=== PATIENT | male | born 1995 | race Caucasian/White ===

== ENCOUNTER 2024-07-15 04:46 | Emergency (ER) | payer OTHER ==
[2024-07-15 06:08] LABS: BLOOD UREA NITROGEN,BUN 12 mg/dL (7-18); CALCIUM 9.7 mg/dL (8.5-10.1); CARBON DIOXIDE,CO2 28 mmol/L (21-32); CHLORIDE,CL 103 mmol/L (100-108); ESTIMATED GFR 105 mL/min (>60); GLUCOSE RANDOM 92 mg/dL (74-106); POTASSIUM,K 3.5 mmol/L (3.6-5.2); SODIUM,NA 141 mmol/L (140-148)
[2024-07-15 06:11] LABS: ANION GAP 13.5 mmol/L (5.0-14.0)
[2024-07-15 06:17] LABS: BASOPHILS ABSOLUTE AUTO 0.07 K/uL (0.00-0.10); BASOPHILS PERCENT AUTO 0.8 % (0.1-1.3); EOSINOPHILS ABSOLUTE AUTO 0.08 K/uL (0.00-0.40); HEMATOCRIT 41.6 % (38.4-49.7); HEMOGLOBIN 15.9 g/dL (12.9-16.9); IMMATURE GRAN ABSOLUTE AUTO 0.07 K/uL (0.00-0.23); IMMATURE GRAN PERCENT AUTO 0.8 % (0.0-0.7); LYMPHOCYTES ABSOLUTE AUTO 1.68 K/uL (0.8-3.3); LYMPHOCYTES PERCENT AUTO 20.3 % (11.4-47.7); MEAN CORPUSCULAR HEMOGLOBIN 29.8 pg (31.6-35.5); MEAN CORPUSCULAR HGB CONC 38.2 g/dL (31.6-35.5); MONOCYTES ABSOLUTE AUTO 0.69 K/uL (0.20-0.90); MONOCYTES PERCENT AUTO 8.4 % (3.3-12.6); NEUTROPHILS ABSOLUTE AUTO 5.67 K/uL (1.0-7.6); NEUTROPHILS PERCENT AUTO 68.7 % (40.0-78.1); PLATELET COUNT,PLT 394 K/uL (130-375); RED BLOOD CELL COUNT 5.33 M/uL (4.14-5.76); WHITE BLOOD CELL COUNT,WBC 8.3 K/uL (3.2-11.0)
[2024-07-15] MEDS: Iopamidol 612 MG/ML 100 ML Bottle IV ONE (06:42)
[2024-07-15] MEDS: Sodium Chloride 0.9% 80 ML IV SCH (06:42)
[2024-07-15] MEDS: Diphtheria,Pertussis(Acell),Tetanus Vaccine 0.5 ML Syringe IM ONE (07:12)
== END 2024-07-15 08:10 | disposition home or self-care (01) ==
LOC: JP.ED 04:46
DX: S30.1XXA Contusion of abdominal wall, initial encounter (principal); E10.9 Type 1 diabetes mellitus without complications; Z79.4 Long term (current) use of insulin; Z88.0 Allergy status to penicillin; Z23 Encounter for immunization; V89.2XXA Person injured in unspecified motor-vehicle accident, traffic, initial encounter
CPT/HCPCS: 36415; 70450; 71260; 72125; 74177; 76377; 80048; 85025; 90471; 90715; 99284; J3490; Q9967

== ENCOUNTER 2024-08-19 20:52 | Emergency (ER) | payer OTHER ==
[2024-08-19] MEDS: Lidocaine 1% with EPINEPHrine 1:100,000 20 ML MDV INJECT ONE (21:29)
[2024-08-19] MEDS: Bacitracin Oint 1 GM U/D Packet TOP ONE (21:29)
[2024-08-19] MEDS: Cephalexin 250 MG Cap PO ONE (22:48)
== END 2024-08-19 23:02 | disposition home or self-care (01) ==
LOC: JP.ED 20:52
DX: S61.411A Laceration without foreign body of right hand, initial encounter (principal); E10.9 Type 1 diabetes mellitus without complications; J45.909 Unspecified asthma, uncomplicated; E78.00 Pure hypercholesterolemia, unspecified; Z79.4 Long term (current) use of insulin; Z79.84 Long term (current) use of oral hypoglycemic drugs; Z79.899 Other long term (current) drug therapy; Z88.0 Allergy status to penicillin; W25.XXXA Contact with sharp glass, initial encounter; Y93.G1 Activity, food preparation and clean up
CPT/HCPCS: 12002; 99282; A9270

== ENCOUNTER 2024-09-12 21:49 | Emergency (ER) | payer OTHER ==
[2024-09-12] MEDS: Lidocaine 1% 5 ML VIAL ONE (22:47)
[2024-09-12] MEDS: Bacitracin Oint 1 GM U/D Packet TOP ONE (22:47)
[2024-09-12] MEDS: Lidocaine 2% 5 ML SDV INJECT ONE (22:48)
[2024-09-12] MEDS: Lidocaine 1% 5 ML VIAL INJECT ONE (22:52)
== END 2024-09-12 23:24 | disposition home or self-care (01) ==
LOC: JP.ED 21:49
DX: S61.252A Open bite of right middle finger without damage to nail, initial encounter (principal); S61.250A Open bite of right index finger without damage to nail, initial encounter; J45.909 Unspecified asthma, uncomplicated; E10.9 Type 1 diabetes mellitus without complications; E78.00 Pure hypercholesterolemia, unspecified; Z79.4 Long term (current) use of insulin; Z79.899 Other long term (current) drug therapy; Z88.0 Allergy status to penicillin; W54.0XXA Bitten by dog, initial encounter
CPT/HCPCS: 99283